=== PATIENT | male | born 1960 | race Caucasian/White ===

== ENCOUNTER 2020-11-11 13:04 | Inpatient (IN) | payer OTHER ==
[2020-11-11] MEDS ORDERED: Ondansetron PF 4 MG/2 ML Vial ONE (13:40)
[2020-11-11] MEDS ORDERED: Morphine 4 MG/ML VIAL ONE (13:40)
[2020-11-11 14:03] LABS: #Basophils 0.1 thou/uL (0.0-0.2); #Eosinphils 0.2 thou/uL (0.0-0.7); #Lymphocytes 1.9 thou/uL (1.20-3.40); #Monocytes 0.5 thou/uL (0.11-0.59); #Neutrophils 3.6 thou/uL (1.40-6.50); %Basophils 1.3 % (0.0-1.0); %Eosinophils 2.6 % (0.0-10.0); %Lymphocytes 29.9 % (21.0-51.0); %Monocytes 8.7 % (0.0-10.0); %Neutrophils 57.5 % (42.0-75.0); Hemoglobin 14.5 g/dL (14.0-18.0); Mean Corpuscular HGB CONC 33.9 g/dL (32.0-36.0); Mean Corpuscular Hemoglobin 32.6 pg (27.0-31.0); Mean Corpuscular Volume 96.2 fL (78.0-98.0); Mean Platelet Volume 7.2 fL (7.4-10.4); Platelet Count 234 thou/uL (130-400); RBC Distribution Width 11.8 % (11.5-14.5); Red Blood Cell (RBC) Count 4.45 mill/uL (4.70-6.10); White Blood Cell (WBC) Count 6.2 thou/uL (4.8-10.8)
[2020-11-11 14:10] LABS: Prothrombin Time 13.2 sec (12.0-14.7)
[2020-11-11 14:23] LABS: ALT (SGPT) 32 U/L (8-55); AST (SGOT) 23 U/L (5-34); Albumin 4.3 g/dL (3.4-4.8); Alkaline Phosphatase 59 U/L (40-110); Anion Gap 17 mmol/L (10-20); BUN (Urea Nitrogen) 20 mg/dL (8.4-25.7); Bilirubin, Total 0.3 mg/dL (0.2-1.2); Calc. Creatinine Clearance 0 mL/min (70-130); Calcium 8.8 mg/dL (7.8-10.44); Carbon Dioxide 20 mmol/L (23-31); Chloride 108 mmol/L (98-107); Globulin 2.5 g/dL (2.4-3.5); Glucose 137 mg/dL (80-115); Potassium 4.6 mmol/L (3.5-5.1); Protein, Total 6.8 g/dL (5.8-8.1); Sodium 140 mmol/L (136-145)
[2020-11-11] MEDS ORDERED: hydrALAZINE 20 MG/ML VIAL SLOW IVP PRN (15:54)
[2020-11-11] MEDS ORDERED: Ondansetron PF 4 MG/2 ML Vial IVP PRN (15:54)
[2020-11-11] MEDS ORDERED: Dextrose 50% Abboject 50 ML SYRINGE SLOW IVP PRN (15:54)
[2020-11-11] MEDS ORDERED: Dextrose 5% in Water 1,000 ML IV PRN (15:54)
[2020-11-11] MEDS ORDERED: Acetaminophen 500 MG TAB PO PRN (15:57)
[2020-11-11] MEDS ORDERED: Cyclobenzaprine 10 MG TAB PO PRN (15:59)
[2020-11-11] MEDS ORDERED: Senokot 8.6 MG TAB PO PRN (16:00)
[2020-11-11 16:28] LABS: PTT 29.2 sec (22.9-36.1); Prothrombin Time 13.8 sec (12.0-14.7)
[2020-11-11 16:42] LABS: Anion Gap 15 mmol/L (10-20); BUN (Urea Nitrogen) 21 mg/dL (8.4-25.7); Calc. Creatinine Clearance 0 mL/min (70-130); Calcium 8.8 mg/dL (7.8-10.44); Carbon Dioxide 21 mmol/L (23-31); Chloride 109 mmol/L (98-107); Glucose 112 mg/dL (80-115); Potassium 4.5 mmol/L (3.5-5.1); Sodium 140 mmol/L (136-145)
[2020-11-11 18:14] VITALS: BMI 25.0
[2020-11-11] MEDS: Ibuprofen 200 MG TAB PO SCH ×2 (19:30→19:47)
[2020-11-11] MEDS: Docusate 100 MG CAP PO SCH (19:47)
[2020-11-11] MEDS: Gabapentin 300 MG CAP PO SCH (19:48)
[2020-11-11] MEDS: levETIRAcetam 500 MG TAB PO SCH (19:48)
[2020-11-11] MEDS: Lactated Ringer's 1,000 ML IV SCH (19:49)
[2020-11-12] MEDS: Ibuprofen 200 MG TAB PO SCH ×7 (01:02→23:48)
[2020-11-12 01:24] LABS: SARS-CoV-2 PCR by NAA Not Detected (NotDetected)
[2020-11-12] MEDS: Lactated Ringer's 1,000 ML IV SCH ×2 (02:59→14:17)
[2020-11-12 05:28] LABS: #Eosinphils 0.1 thou/uL (0.0-0.7); #Lymphocytes 1.9 thou/uL (1.20-3.40); #Neutrophils 5.6 thou/uL (1.40-6.50); %Basophils 0.5 % (0.0-1.0); %Eosinophils 1.3 % (0.0-10.0); %Lymphocytes 21.5 % (21.0-51.0); %Monocytes 11.5 % (0.0-10.0); %Neutrophils 65.1 % (42.0-75.0); Hemoglobin 13.7 g/dL (14.0-18.0); Mean Corpuscular HGB CONC 33.6 g/dL (32.0-36.0); Mean Corpuscular Hemoglobin 32.5 pg (27.0-31.0); Mean Corpuscular Volume 96.8 fL (78.0-98.0); Mean Platelet Volume 7.1 fL (7.4-10.4); Platelet Count 197 thou/uL (130-400); RBC Distribution Width 11.8 % (11.5-14.5); Red Blood Cell (RBC) Count 4.22 mill/uL (4.70-6.10); White Blood Cell (WBC) Count 8.6 thou/uL (4.8-10.8)
[2020-11-12 05:50] LABS: Magnesium 7.7 mg/dL (1.6-2.6); Phosphorus 2.3 mg/dL (2.3-4.7)
[2020-11-12] MEDS ORDERED: Vancomycin 1.5 GRAM/300 ML BAG 1.5 GM in Premix Bag 1 BAG IVPB SCH ×2 (07:30→23:59)
[2020-11-12] MEDS ORDERED: CEFAZOLIN 2 GM in Premix Bag 1 BAG IVPB SCH (07:30)
[2020-11-12] MEDS: Gabapentin 300 MG CAP PO SCH ×3 (09:30→20:40)
[2020-11-12] MEDS: levETIRAcetam 500 MG TAB PO SCH ×2 (09:31→20:39)
[2020-11-12] MEDS ORDERED: Rocuronium Bromide 10 MG/ML (10ML VIAL) ONE (10:31)
[2020-11-12] MEDS ORDERED: Dexamethasone 20 MG/5 ML VIAL ONE (10:31)
[2020-11-12] MEDS ORDERED: ePHEDrine 50 MG/ML VIAL ONE ×2 (10:31)
[2020-11-12] MEDS ORDERED: Glycopyrrolate 0.2 MG/ML 5 ML SYRINGE ONE (10:31)
[2020-11-12] MEDS ORDERED: PROPOFOL 200 MG/20 ML VIAL ONE (10:31)
[2020-11-12] MEDS ORDERED: PHENYLEPHRINE-NS 100 MCG/ML 10 ML SYRINGE ONE (10:31)
[2020-11-12] MEDS ORDERED: Ondansetron PF 4 MG/2 ML Vial ONE (10:31)
[2020-11-12] MEDS ORDERED: Lidocaine 1% PF 5 ML VIAL ONE (10:31)
[2020-11-12] MEDS: Docusate 100 MG CAP PO SCH ×2 (10:45→20:40)
[2020-11-12] MEDS ORDERED: Vancomycin 1.5 GRAM/300 ML BAG ONE (12:13)
[2020-11-12] MEDS ORDERED: Fentanyl 100 MCG/2 ML VIAL ONE ×3 (12:28→15:19)
[2020-11-12] MEDS ORDERED: Tranexamic Acid 1,000 MG/10 ML VIAL ONE (12:42)
[2020-11-12] MEDS ORDERED: Sodium Chloride 0.9% 100 ML ONE (12:42)
[2020-11-12] MEDS ORDERED: Promethazine HCl 25 MG/ML VIAL SLOW IVP PRN (14:56)
[2020-11-12] MEDS ORDERED: Ondansetron HCl/PF 4 MG/2 ML Vial IVP PRN (14:56)
[2020-11-12] MEDS ORDERED: Promethazine HCl 25 MG/ML VIAL IM PRN (14:56)
[2020-11-12] MEDS: CEFAZOLIN 2 GM in Premix Bag 1 BAG IVPB SCH (20:39)
[2020-11-13] MEDS: Ibuprofen 200 MG TAB PO SCH ×3 (05:56→21:04)
[2020-11-13] MEDS: CEFAZOLIN 2 GM in Premix Bag 1 BAG IVPB SCH (05:57)
[2020-11-13 07:56] LABS: #Lymphocytes 1.2 thou/uL (1.20-3.40); #Monocytes 1.1 thou/uL (0.11-0.59); #Neutrophils 6.8 thou/uL (1.40-6.50); %Basophils 0.1 % (0.0-1.0); %Eosinophils 0.5 % (0.0-10.0); %Lymphocytes 13.1 % (21.0-51.0); %Neutrophils 74.3 % (42.0-75.0); Hemoglobin 12.3 g/dL (14.0-18.0); Mean Corpuscular Volume 97.1 fL (78.0-98.0); Mean Platelet Volume 7.1 fL (7.4-10.4); Platelet Count 177 thou/uL (130-400); RBC Distribution Width 11.8 % (11.5-14.5); Red Blood Cell (RBC) Count 3.74 mill/uL (4.70-6.10); White Blood Cell (WBC) Count 9.2 thou/uL (4.8-10.8)
[2020-11-13 08:26] LABS: Anion Gap 12 mmol/L (10-20); BUN (Urea Nitrogen) 17 mg/dL (8.4-25.7); Calc. Creatinine Clearance 108 mL/min (70-130); Calcium 8.2 mg/dL (7.8-10.44); Carbon Dioxide 21 mmol/L (23-31); Chloride 107 mmol/L (98-107); Glucose 114 mg/dL (80-115); Magnesium 1.6 mg/dL (1.6-2.6); Phosphorus 2.8 mg/dL (2.3-4.7); Potassium 4.5 mmol/L (3.5-5.1); Sodium 135 mmol/L (136-145)
[2020-11-13] MEDS ORDERED: Vancomycin 1.5 GRAM/300 ML BAG 1.5 GM in Premix Bag 1 BAG IVPB SCH (08:30)
[2020-11-13] MEDS: Docusate 100 MG CAP PO SCH ×2 (09:12→20:10)
[2020-11-13] MEDS: levETIRAcetam 500 MG TAB PO SCH ×2 (09:13→20:09)
[2020-11-13] MEDS: Gabapentin 300 MG CAP PO SCH ×3 (09:13→20:10)
[2020-11-13] MEDS: Enoxaparin Sodium 40 MG/0.4 ML SYRINGE SC SCH (09:14)
[2020-11-13] MEDS ORDERED: CEFAZOLIN 2 GM in Premix Bag 1 BAG IVPB SCH (13:00)
[2020-11-14] MEDS: Ibuprofen 200 MG TAB PO SCH ×3 (05:29→21:33)
[2020-11-14] MEDS: Gabapentin 300 MG CAP PO SCH ×3 (10:33→21:35)
[2020-11-14] MEDS: Enoxaparin Sodium 40 MG/0.4 ML SYRINGE SC SCH (10:33)
[2020-11-14] MEDS: Polyethylene Glycol 3350 17 GM Packet PO SCH (10:33)
[2020-11-14] MEDS: Senokot S 8.6-50 MG TAB PO SCH ×2 (10:33→21:33)
[2020-11-14] MEDS: levETIRAcetam 500 MG TAB PO SCH ×2 (10:34→21:35)
[2020-11-14] MEDS: Acetaminophen 325 MG TAB PO SCH ×2 (12:39→18:40)
[2020-11-15] MEDS ORDERED: Melatonin 3 MG TAB PO SCH (00:15)
[2020-11-15] MEDS: Ibuprofen 200 MG TAB PO SCH ×3 (06:29→21:38)
[2020-11-15] MEDS: Acetaminophen 325 MG TAB PO SCH ×5 (06:29→23:12)
[2020-11-15] MEDS: Enoxaparin Sodium 40 MG/0.4 ML SYRINGE SC SCH (08:22)
[2020-11-15] MEDS: Senokot S 8.6-50 MG TAB PO SCH ×2 (08:23→20:16)
[2020-11-15] MEDS: levETIRAcetam 500 MG TAB PO SCH ×2 (08:23→20:17)
[2020-11-15] MEDS: Gabapentin 300 MG CAP PO SCH ×3 (08:23→20:17)
[2020-11-15] MEDS: Polyethylene Glycol 3350 17 GM Packet PO SCH (08:23)
[2020-11-16] MEDS: Ibuprofen 200 MG TAB PO SCH ×2 (05:54→15:07)
[2020-11-16] MEDS: Acetaminophen 325 MG TAB PO SCH ×2 (05:55→12:32)
[2020-11-16] MEDS: Enoxaparin Sodium 40 MG/0.4 ML SYRINGE SC SCH (10:09)
[2020-11-16] MEDS: levETIRAcetam 500 MG TAB PO SCH (10:10)
[2020-11-16] MEDS: Polyethylene Glycol 3350 17 GM Packet PO SCH (10:12)
[2020-11-16] MEDS: Gabapentin 300 MG CAP PO SCH ×2 (10:12→15:07)
[2020-11-16] MEDS: Senokot S 8.6-50 MG TAB PO SCH (10:14)
[2020-11-16 16:11] VITALS: BP 122/83; TEMP 97.6
== END 2020-11-16 15:15 | DRG 522 ==
LOC: ERS 13:04 → SURG A 15:29
PROVIDERS: ADMIT Specialist; ATTEND Specialist
PROC: 0SRB04Z Replacement of Left Hip Joint with Ceramic on Polyethylene Synthetic Substitute, Open Approach (ICD-10-PCS; principal; 2020-11-12)
DX: S72.012A Unspecified intracapsular fracture of left femur, initial encounter for closed fracture (principal); E78.00 Pure hypercholesterolemia, unspecified; E78.5 Hyperlipidemia, unspecified; G40.909 Epilepsy, unspecified, not intractable, without status epilepticus; Z87.820 Personal history of traumatic brain injury; Z98.890 Other specified postprocedural states; Z79.899 Other long term (current) drug therapy; Z87.442 Personal history of urinary calculi; Z20.822 Contact with and (suspected) exposure to COVID-19; W18.30XA Fall on same level, unspecified, initial encounter
CPT/HCPCS: 36415; 71045; 72170; 80048; 80053; 83735; 84100; 85025; 85610; 85730; 87635; 93005; 96374; 96375; G0390; J0690; J1100; J1650; J2270; J2405; J2704; J3010; J3370; J3490; U0003; U0005